=== PATIENT | male | born 1970 | race Caucasian/White ===

== ENCOUNTER 2024-10-21 09:53 | Outpatient (AMB) | payer MEDICAID, SELFPAY ==
[2024-10-21 10:10] VITALS: BP 116/69; PULSE 74; RESP 18; TEMP 36.8; O2SAT 98; BMI 32.8
--- NOTE | 2024-10-21 10:10 | PD.ORTHCLVIS ---
Vital signs 10/21/24 10:10 Height 1.78 m Height Method Stated Weight 104.014 kg Weight Measurement Method Standing Scale BMI 32.8 BP 116/69 Blood Pressure Source Automatic Cuff Blood Pressure Location Right Upper Arm Position Sitting Respiration 18 Pulse 74 Pulse Source Monitor Temp 98.3 F Temp Source Temporal Artery Scan Pulse Oximetry (%) 98 Oxygen Delivery Method Room Air Med/Allergies Allergies & Medications Allergies No Known Allergies Allergy (Verified 10/21/24 10:12) Medication Reconciliation diclofenac sodium 1 % topical gel 2 g topical QID 10/21/24 [History Confirmed 10/21/24] diclofenac sodium 50 mg tablet,delayed release 50 mg PO QDAY 10/21/24 [History Confirmed 10/21/24] hydrocodone 5 mg-acetaminophen 325 mg tablet 1 tab PO BID PRN 10/21/24 [History Confirmed 10/21/24] ibuprofen 800 mg tablet 800 mg PO Q8H 10/21/24 [History Confirmed 10/21/24] sildenafil 25 mg tablet (Viagra) 25 mg PO QDAY PRN 10/21/24 [History Confirmed 10/21/24] tramadol 50 mg tablet 50 mg PO QDAY 10/21/24 [History Confirmed 10/21/24] Exam Exam Patient is in no acute distress and is cooperative with the examination today. Breathing is nonlabored. In no respiratory distress. Bilateral extremities were evaluated and demonstrates sensation intact to light touch. Palpable pedal pulses are present. No significant edema is present. Bilateral hips were examined. The patient has no pain with log roll of the hips. Internal rotation to 30 degrees and external rotation to 30 degrees is painless. Negative FADIR. The left knee was examined. The left knee is in varus alignment. Range of motion from 0-115 degrees. Knee is stable to varus and valgus as well as AP translation with <5mm. Patient has a negative McMurrays. There is no pain with patellofemoral compression and no crepitus noted. The knee is tender to palpation medially. The right knee was also examined. The right knee is in valgus alignment. Range of motion from 0-120 degrees. Knee is stable to varus and valgus as well as AP translation with <5mm. Patient has a negative McMurrays. There is no pain with patellofemoral compression and no crepitus noted. The knee is tender to palpation laterally Patient has a nonweightbearing film of the right knee This demonstrates advanced joint space narrowing laterally. These are nonweightbearing films Assessment and Plan Problem List (1) Arthritis of right knee: Status: Acute Plan: Patient is a 54-year-old male with bilateral knee pain and bilateral knee arthritis. We Will get weightbearing x-rays. We discussed different treatment options depending on what that shows Office Procedures GNS Level of Care Nursing/Assessment Patient Status: Initial/New Patient Nursing Assessment/Reassesment: Medication Reconciliation, Update PMH in EMR and Vital Signs Coordination of Care: Complex Care and Chronic Disease 1-5, Education Complex Pt/Fam, Consent,records obtained, informed consent, 1 Ins Authorization, Lab and Imaging orders, Results/Orders obtained and Staff clarify orders New Patient Charge New Patient Point Assignment: 1124 New Patient Point Charge: [employer] Level 4 ([id number]) MA Intake Visit Data Collection New Patient or Established: New Patient (never been to [facility]) Reason for Visit:: Bilateral Knee pain Seen by Clinical Staff ONLY (RN/MA): No Sort Operations Supervisor Required: No PCP or OBGYN visit in last 3 months: Yes Hx Now: No Do You Feel Safe at Home: Yes Authorities Contacted: N/A Questionairres Past Medical History Past Medical History Have you ever been diagnosed with any of the following: Respiratory Problems Smoking: No Smoking Cessation Counseling: No Smoking Exposure: No Surgical History Appendectomy: Yes Subjective Visit Visit for: new patient and knee (Bilateral) Immunization / Flu Flu Vaccine in the Last 12 Months: Yes Flu Vaccine Exclusion Criteria: Already Received History of Present Illness Chief complaint: Bilateral knee pain Lalo is a 54-year-old male with right greater than left knee pain. He has a history of back surgery. He has not had any injections but has tried anti-inflammatories including diclofenac and ibuprofen. He reports the pain is miserable. It is on the Outside of his right knee Pain Pain level (0-10): 5 Pain duration: with movement Pain location: inside (medial) and outside (lateral) Pain quality: sharp, dull and aching Pain timing: increases with activity and stairs Associated signs & symptoms: weakness and stiffness Ambulatory data Ambulatory device: none Treatments Improvement with NSAIDS: no Review of Systems Review of Systems: All systems negative unless otherwise noted in HPI.
--- NOTE | 2024-10-21 10:23 | XR_ITS ---
Examination: Bilateral knees 2 views Right lateral knee left lateral knee 2 views Bilateral axial knees single view TECHNIQUE: Bilateral AP knees standing single view, bilateral PA knees standing single view flexion Staining right lateral knee left lateral knee 2 views Bilateral axial knees single view total 5 views Exam date and time: October 21, 2024 1038 hours INDICATIONS: Bilateral knee pain 3 years. FINDINGS: Moderate osteopenia Advanced narrowing lateral joint space right knee Advanced osteoarthritis right patellofemoral joint No fracture Mild left knee tricompartment osteoarthritis No fracture IMPRESSION: Advanced narrowing lateral joint space right knee Advanced osteoarthritis right patellofemoral joint
== END 2024-10-21 10:45 | disposition home or self-care (01) ==
PROVIDERS: PCP Family Medicine; Referring Provider Family Medicine; Supervising Provider Orthopaedic Surgery Adult Reconstructive Orthopaedic Surgery; Visit Provider Orthopaedic Surgery Adult Reconstructive Orthopaedic Surgery
DX: M17.11 Unilateral primary osteoarthritis, right knee (principal); M25.562 Pain in left knee; M25.561 Pain in right knee
CPT/HCPCS: 73564; 99204; G0463

== ENCOUNTER 2024-11-20 08:20 | Outpatient (AMB) | payer MEDICAID, SELFPAY ==
[2024-11-20 08:59] VITALS: BP 128/80; PULSE 61; RESP 19; TEMP 36.3; O2SAT 98; BMI 33.3
--- NOTE | 2024-11-20 08:59 | PD.ORTHCLVIS ---
Vital signs 11/20/24 08:59 Height 1.78 m Height Method Stated Weight 105.46 kg Weight Measurement Method Standing Scale BMI 33.3 BP 128/80 Blood Pressure Source Automatic Cuff Blood Pressure Location Left Upper Arm Position Sitting Respiration 19 Pulse 61 Pulse Source Monitor Temp 97.4 F Temp Source Temporal Artery Scan Pulse Oximetry (%) 98 Oxygen Delivery Method Room Air Med/Allergies Allergies & Medications Allergies No Known Allergies Allergy (Verified 11/20/24 09:00) Medication Reconciliation diclofenac sodium 1 % topical gel 2 g topical QID 10/21/24 [History Confirmed 11/20/24] diclofenac sodium 50 mg tablet,delayed release 50 mg PO QDAY 10/21/24 [History Confirmed 11/20/24] hydrocodone 5 mg-acetaminophen 325 mg tablet 1 tab PO BID PRN 10/21/24 [History Confirmed 11/20/24] ibuprofen 800 mg tablet 800 mg PO Q8H 10/21/24 [History Confirmed 11/20/24] sildenafil 25 mg tablet (Viagra) 25 mg PO QDAY PRN 10/21/24 [History Confirmed 11/20/24] tramadol 50 mg tablet 50 mg PO QDAY 10/21/24 [History Confirmed 11/20/24] Exam Exam Patient is in no acute distress and is cooperative with the examination today. Breathing is nonlabored. In no respiratory distress. Bilateral extremities were evaluated and demonstrates sensation intact to light touch. Palpable pedal pulses are present. No significant edema is present. Bilateral hips were examined. The patient has no pain with log roll of the hips. Internal rotation to 30 degrees and external rotation to 30 degrees is painless. Negative FADIR. The left knee was examined. The left knee is in varus alignment. Range of motion from 0-115 degrees. Knee is stable to varus and valgus as well as AP translation with <5mm. Patient has a negative McMurrays. There is no pain with patellofemoral compression and no crepitus noted. The knee is tender to palpation medially. The right knee was also examined. The right knee is in valgus alignment. Range of motion from 0-120 degrees. Knee is stable to varus and valgus as well as AP translation with <5mm. Patient has a negative McMurrays. There is no pain with patellofemoral compression and no crepitus noted. The knee is tender to palpation laterally Patient has a nonweightbearing film of the right knee This demonstrates advanced joint space narrowing laterally on the weight bearing films. Assessment and Plan Problem List (1) Arthritis of right knee: Status: Acute Plan: Patient is a 54-year-old male with bilateral knee pain and bilateral knee arthritis. Weight bearing xrays demonstrate severe arthritis laterally. We discussed cortison injections which he is not interested in. We also discussed continued conservative treatment and total knee replacement in great detail. He wants to wait to make a decision. Office Procedures GNS Level of Care Nursing/Assessment Patient Status: Established Patient Nursing Assessment/Reassesment: Medication Reconciliation, Update PMH in EMR and Vital Signs Coordination of Care: Complex Care and Chronic Disease 1-5, Education Complex Pt/Fam, Consent,records obtained, informed consent, Results/Orders obtained and Staff clarify orders Established Patient Charge Established Patient Point Assignment: 95 Established Patient Point Charge: Level 3 (80-115) MA Intake Visit Data Collection New Patient or Established: Established Patient (seen at [facility] within 3 years) Reason for Visit:: FOLLOW UP Seen by Clinical Staff ONLY (RN/MA): No Director Of Strategy & Mobile Required: No PCP or OBGYN visit in last 3 months: Yes Hx Now: No Do You Feel Safe at Home: Yes Authorities Contacted: N/A Questionairres Past Medical History Past Medical History Have you ever been diagnosed with any of the following: Respiratory Problems Smoking: No Smoking Cessation Counseling: No Smoking Exposure: No Surgical History Appendectomy: Yes Subjective Visit Visit for: follow up visit Immunization / Flu Flu Vaccine in the Last 12 Months: No Flu Vaccine Exclusion Criteria: No Exclusion Criteria History of Present Illness Chief complaint: Bilateral knee pain Lalo is a 54-year-old male with right greater than left knee pain. He has a history of back surgery. He has not had any injections but has tried anti-inflammatories including diclofenac and ibuprofen. He reports the pain is miserable. It is on the Outside of his right knee. He is afraid of needles and does now want an injection. Pain Pain level (0-10): 6 Pain duration: ALL DAY Pain location: anterior and posterior Pain quality: sharp, dull and aching Pain timing: increases with activity and stairs Associated signs & symptoms: stiffness Ambulatory data Ambulatory device: none Treatments Improvement with previous injections: No Improvement with PT: No Improvement with NSAIDS: no Review of Systems Review of Systems: All systems negative unless otherwise noted in HPI.
== END 2024-11-20 09:14 | disposition home or self-care (01) ==
LOC: HODSRG 08:20
PROVIDERS: PCP Family Medicine; Referring Provider Family Medicine; Supervising Provider Orthopaedic Surgery Adult Reconstructive Orthopaedic Surgery; Visit Provider Orthopaedic Surgery Adult Reconstructive Orthopaedic Surgery
DX: M17.0 Bilateral primary osteoarthritis of knee (principal); M25.562 Pain in left knee; M25.561 Pain in right knee
CPT/HCPCS: 99213; G0463

== ENCOUNTER → 2025-01-24 | Outpatient (CLI) | payer MEDICAID, SELFPAY ==
--- NOTE | 2025-01-24 07:15 | XR_ITS ---
Examination: MRI lumbar spine, without intravenous contrast. MRI lumbar spine , with intravenous contrast. Exam date and time: January 24, 2025 0752 hours INDICATIONS: Worsening lower back pain 11 years Technique: Multiple axial, sagittal and coronal images of the lumbar spine have been obtained with the Siemens high-resolution 1.5 Ludy MRI scanner. Images obtained included T2 weighted fat suppressed sagittal sections, TR 3500, TE 46, T2 weighted coronal fat suppressed images, TR 3050, TE 84, T2-weighted transverse fat suppressed images, TR 30-60, TE 63, proton density transverse images, TR 4720, TE 46, and T1 weighted coronal images, TR 560, TE 13. Axial, sagittal and coronal images are obtained post intravenous injection 20 cc gadolinium. Findings: Postcontrast images demonstrate mild enhancement L4, L5 Diffuse lumbar disc narrowing moderate to advanced Diffuse lumbar disc desiccation No spondylolisthesis L5-S1 5 mm central lumbar disc bulge contiguous with the left S1 nerve root L4-L5 6 mm central lumbar disc bulge indenting the ventral margin thecal sac and producing mild left L4 ganglionic impression L3-L4 6 mm central lumbar disc bulge L2-L3 2 mm central lumbar disc bulge L1-L2 no disc protrusion IMPRESSION: L5-S1 5 mm central lumbar disc bulge contiguous with the left S1 nerve root. L4-L5 6 mm central lumbar disc bulge producing mild left L4 ganglionic compression L3-L4 6 mm 6 mm central lumbar disc bulge
== END | disposition home or self-care (01) ==
LOC: SMRI 06:58
PROVIDERS: Referring Provider Family Medicine; Visit Provider Family Medicine
DX: M51.370 Other intervertebral disc degeneration, lumbosacral region with discogenic back pain only (principal); M51.360 Other intervertebral disc degeneration, lumbar region with discogenic back pain only; G95.20 Unspecified cord compression
CPT/HCPCS: 72158; A9579